=== PATIENT | male | born 1960 | race Caucasian/White ===

== ENCOUNTER 2017-06-24 10:04 | Day surgery (SDC) | payer BC ==
[~2017-06-24 10:04] MED LIST: ACETAMINOPHEN 1,000 MG/100 ML BTL IV ONE; CEFAZOLIN 2 Gram 2 GM/50 ML BAG IVPB ONE
[2017-06-24] MEDS ORDERED: SEVOFLURANE 250 ML INH ONE (10:05)
[2017-06-24] MEDS ORDERED: PROPOFOL 10 MG/ML VIAL IV ONE (10:05)
[2017-06-24] MEDS ORDERED: ONDANSETRON HCL IV 4 MG/2 ML VIAL IVP ONE (10:05)
[2017-06-24] MEDS ORDERED: SUCCINYLCHOLINE 20 MG/ML 10ML IVP ONE (10:05)
[2017-06-24] MEDS ORDERED: DEXAMETHASONE 4 MG/ML 1ML VIAL IVP ONE (10:05)
[2017-06-24] MEDS ORDERED: LIDOCAINE 2% MDV (20MG/ML) 20ML VIAL IV ONE (10:05)
[2017-06-24] MEDS ORDERED: BUPIVACAINE 0.5% W/EPI MPF 30 ML VIAL IVP ONE (10:05)
[2017-06-24] MEDS ORDERED: ROCURONIUM BROMIDE 50MG/5ML VIAL IV ONE (10:05)
[2017-06-24] MEDS ORDERED: MIDAZOLAM HCL 2MG/2ML VIAL IV ONE (10:05)
[2017-06-24] MEDS ORDERED: KETOROLAC 30 MG/ML VIAL IVP ONE (10:05)
[2017-06-24] MEDS ORDERED: METHYLPREDNISOLONE 40MG/VIAL IM ONE (10:05)
[2017-06-24] MEDS ORDERED: MORPHINE SULFATE PF 10MG/10ML VIAL IV ONE (10:05)
[2017-06-24] MEDS ORDERED: FENTANYL PF 100MCG/2ML VIAL IV ONE (10:05)
--- NOTE | 2017-06-25 15:58 | Operative Note ---
DATE OF SURGERY: 06/24/2017 PREOPERATIVE DIAGNOSIS: SEVERE IMPINGEMENT, RIGHT SHOULDER. POSTOPERATIVE DIAGNOSES: 1. SMALL TEAR OF THE ROTATOR CUFF ON THE RIGHT. 2. COMPLEX GLENOHUMERAL LABRAL TEAR FROM APPROXIMATELY THE 10 TO 4 O'CLOCK POSITION. 3. PROFOUND EXTERNAL IMPINGEMENT, RIGHT SHOULDER. 4. ADVANCED ARTHROSIS, RIGHT DISTAL CLAVICLE. PROCEDURE: 1. REPAIR OF A CHRONICALLY TORN RIGHT ROTATOR CUFF TENDON. 2. RIGHT SHOULDER ARTHROSCOPY WITH INTRA-ARTICULAR DEBRIDEMENT. 3. RIGHT SHOULDER OPEN ACROMIOPLASTY CA LIGAMENT RESECTION SUBACROMIAL BURSECTOMY. 4. RIGHT SHOULDER DISTAL CLAVICLE RESECTION. STAFF SURGEON: DORIAN MCGHEE M.D. ANESTHESIA: GENERAL. PREPARATION: CHLORAPREP. INDIVIDUAL CONSIDERATIONS: NONE. PROCEDURE: The patient was taken to the Operating Room and placed supine on the operating table. He had a successful induction of a general anesthetic. The right lower extremity was prepped and draped in the usual fashion. The patient had a posterior portal for arthroscopy identified. The skin was infiltrated with 0.50% Marcaine with Epinephrine prior. An 18-gauge spinal needle was placed in the joint and the joint was inflated with normal saline using a 60 mL syringe. A stab wound was made and a blunt-tipped trocar arthroscope was easily placed in the joint and the joint was inflated with normal saline. An anterior accessory portal was then made just inferior to the intact long head of the biceps tendon in a retrograde fashion with a Wissinger jose juan and the joint was irrigated out. The patient's rotator cuff underneath looked okay. The glenohumeral joint was normal, a little bit of synovitis anteriorly but he had quite a bit of multiple frayed labral tears from about 10 to 4 o'clock, a shaver was introduced and these were smoothed off. The long head was intact and again no loose bodies were seen. After irrigation, the portals were closed with lela. The patient had an anterior approach to the subacromial space and distal clavicle. The skin was again infiltrated with 0.50% Marcaine with Epinephrine prior. Sharp dissection carried down through the skin and subcutaneous tissues. Small veins were coagulated with a Bovie. An anterior deltoid interval was developed and care was taken not to split the deltoid more than about 3 or 4 cm distal to the anterior tip of the acromion to prevent injury to the axillary nerve. Once in the subacromial space, there was a martin of fluid consistent with a tear. He had a fairly pronounced downsloping acromion and a huge spur at the undersurface of the acromion. The deltoid was then taken subperiosteally off the anterior aspect of the acromion, over the top of the intact CA ligament, and off the anterior aspect subperiosteally of the distal clavicle. CA ligament was resected with a Bovie. Distal clavicle was resected with an oscillating saw. The patient had an anterior acromioplasty taking mostly spur, measuring about a centimeter tapering to wedge posteromedially to include the spurs extending from the AC joint. The undersurface was smoothed with a rasp. The patient had an extremely thickened bursa and I was able to debride this all out and now I had a good look at the rotator cuff. Basically, where the spur had been rubbing, there was a hole, almost mid stubs and transverse in the supraspinatus. It was about 2-3 mm but after extending out to the vascular areas , it created a hole maybe a centimeter in length and in some areas wasn't completely through. It was good bleeding tendon on either side so I just did a buried knot of 0 Vicryl suture to repair this. I placed the shoulder through a full range of motion to ensure no further impingement. After irrigation, the deltoid was reattached to the remaining acromion using multiple interrupted #2 Vicryl going directly through the bony acromion. The periosteal cuff and distal clavicle were closed with running #2 Vicryl, anterior deltoid interval was closed with a running #1 Vicryl. The subcut was closed with 2-0 plus Vicryl, and skin was closed with lela. About 15 mL of 0.50% Marcaine with Epinephrine along with 4 mg of Morphine were injected in the subacromial space through a sterile #18-gauge needle and a sterile Bulkee compressive dressing was applied and also a sling. The patient tolerated the procedures well. Needle and sponge counts were correct. Estimated blood loss was minimal and he was taken back to Recovery in good condition. There were no complications. cc: Dr. Edson Fernández in [place], [place] JOB NUMBER: [id number] [facility]
== END 2017-06-24 15:08 | disposition home or self-care (01) ==
LOC: SUR 10:04
PROVIDERS: ATTEND Orthopaedic Surgery
DX: M75.111 Incomplete rotator cuff tear or rupture of right shoulder, not specified as traumatic (principal); S43.431A Superior glenoid labrum lesion of right shoulder, initial encounter; M19.011 Primary osteoarthritis, right shoulder
CPT/HCPCS: 23412; 29820; 23415; 23120; 01630; J1885; J2405; J3010; J0690; J0330; J1030